=== PATIENT | male | born 1970 | race African-American/Black ===

== ENCOUNTER 2020-06-28 08:41 | Outpatient (REF) | payer OTHER, SELFPAY ==
[2020-06-28 11:47] LABS: Anion Gap 13 (12-20); Blood Urea Nitrogen 13 mg/dL (9-16); Calcium 8.8 mg/dL (8.4-10.2); Carbon Dioxide 25 mmol/L (22-29); Chloride 105 mmol/L (96-108); Cholesterol 182 mg/dL; Estimated Glomerular Filt Rate > 60; Glucose Fasting 71 mg/dL (60-99); HDL Cholesterol 48 mg/dL; LDL Cholesterol Calculated 124 mg/dl; Potassium 4.5 mmol/l (3.3-5.1); Sodium 138 mmol/L (135-145); Triglycerides 50 mg/dL
[2020-06-28 12:04] LABS: SARS COV2 IgG Negative (Negative)
== END 2020-06-28 08:42 | disposition home or self-care (01) ==
LOC: HO.HMGCLDS 08:41
PROVIDERS: PCP Internal Medicine; Visit Provider Internal Medicine
DX: Z00.01 Encounter for general adult medical examination with abnormal findings (principal); E78.9 Disorder of lipoprotein metabolism, unspecified; Z20.828 Contact with and (suspected) exposure to other viral communicable diseases
CPT/HCPCS: 80048; 80061; 86769

== ENCOUNTER 2020-10-17 07:51 | Outpatient (REF) | payer OTHER, SELFPAY ==
[2020-10-18 08:10] LABS: Syphilis Screen Reactive (Nonreactive)
[2020-10-28 14:22] LABS: RPR Quantitative Non-Reactive (Nonreactive)
[2020-10-28 14:23] LABS: T.Pallidum Particle Agg Test Reactive (Nonreactive)
== END 2020-10-17 07:52 | disposition home or self-care (01) ==
LOC: HO.HMGCLDS 07:51
PROVIDERS: PCP Internal Medicine; Visit Provider Internal Medicine
DX: Z11.3 Encounter for screening for infections with a predominantly sexual mode of transmission (principal)
CPT/HCPCS: 36415; 86592; 86780

== ENCOUNTER → 2020-10-30 10:05 | Outpatient (BNVA) | payer OTHER, SELFPAY | PROVIDERS: PCP Internal Medicine; Visit Provider Internal Medicine ==

== ENCOUNTER 2021-10-30 14:53 | Outpatient (REF) | payer OTHER, SELFPAY ==
[2021-10-30 16:47] LABS: Alanine Aminotransferase 62 U/L (0-40); Albumin Level 4.3 g/dL (3.5-5.0); Alkaline Phosphatase 53 U/L (39-117); Anion Gap 14 (12-20); Aspartate Amino Transferase 49 U/L (5-37); Bilirubin Total 0.9 mg/dL (0.0-1.0); Blood Urea Nitrogen 9 mg/dL (9-16); Carbon Dioxide 26 mmol/L (22-29); Chloride 107 mmol/L (96-108); Cholesterol 229 mg/dL; Estimated Glomerular Filt Rate > 60; Glucose Fasting 75 mg/dL (60-99); HDL Cholesterol 48 mg/dL; LDL Cholesterol Calculated 169 mg/dl; Potassium 5.2 mmol/L (3.3-5.1); Sodium 142 mmol/L (135-145); Total Protein 7.5 g/dL (6.5-8.0); Triglycerides 64 mg/dL
== END 2021-10-30 14:54 | disposition home or self-care (01) ==
LOC: HO.HMGCLDS 14:53
PROVIDERS: PCP Internal Medicine; Visit Provider Internal Medicine
DX: E78.9 Disorder of lipoprotein metabolism, unspecified (principal); M16.12 Unilateral primary osteoarthritis, left hip
CPT/HCPCS: 36415; 80053; 80061

== ENCOUNTER 2021-11-10 08:31 | Outpatient (REF) | payer OTHER, SELFPAY ==
--- NOTE | ~2021-11-10 | XR_ITS ---
EXAMINATION: XR PELVIS CLINICAL INFORMATION: Hip pain COMPARISON: None TECHNIQUE: AP view of the pelvis. FINDINGS: There is bilateral hip arthritis with joint space narrowing and osteophyte formation. There may be a small soft tissue calcification or ossification adjacent to the right greater trochanter. Bones of the pelvis are normal. Sacroiliac joints and symphysis are normal. XR/XR pelvis 1-2V IMPRESSION: Bilateral hip arthritis.
== END 2021-11-10 08:32 | disposition home or self-care (01) ==
LOC: HO.HOSX 08:31
PROVIDERS: Visit Provider Orthopaedic Surgery
DX: M16.12 Unilateral primary osteoarthritis, left hip (principal)
CPT/HCPCS: 72170

== ENCOUNTER 2022-02-05 07:00 | Outpatient (RCR) | payer OTHER, SELFPAY ==
[2021-12-05 11:05] VITALS: BP 115/71; PULSE 74; O2SAT 96
--- NOTE | 2021-12-05 15:32 | MHC.PT.EP ---
[facility] [place] Office [place] Office [place] Office [address] Boby Jose [address] [phone] F: [phone] F: [phone] F: [phone] F: [phone] Physical Therapy Plan of Care Date of Evaluation: Date of Surgery: Diagnosis: LEFT HIP OA Assessment: 51 YO MALE REF TO PT W LEFT HIP OA W PROGRESSIVE SXS SINCE 06/2021. 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 OBJECTIVE FINDINGS INCLUDE LIMITED TRUNK AND HIP AROM, (+) TISSUE TENSION IN POSTERIOR CHAIN (Lt > Rt LUMBAR PS AND HIP FLEXOR MM) , WEAKNESS IN MARYLOU HIP ROTATORS, AND PAIN IN Lt POSTEROLAT HIP. FUNCTIONALLY, Pt HAS PAIN AND DIFFIC W DONNING SHOES AND SOCKS, PROLONGED SITTING, SL LEFT, AND STATIC POSITIONING. HE DEMON A DECENT FUNCTIONAL SQUAT. Pt WOULD BENEFIT FROM PT TO ADDRESS THE ABOVE FINDINGS, PAIN MGMT, DEV SELF- SX MGMT STRATEGIES, AND ASSIST Pt W RESUMING REGULAR ADLs/ WORK TASKS. Frequency and Duration: The patient will be seen 2 x WK x 5 WKS Short Term Goals: *Pt'S LEFT HIP GIRDLE PAIN IS DECR TO 2-3/10 W REG ADLs IN 3 2 WKS *Pt DEMON IMPROVED AROM AND INITIATE STRENGTHENING IN HIP IR/ER IN 2 WKS Pt DEMON WFL AROM HIP EXT , ROTAT, AND ANKLE DF/PF IN 3 WKS Pt DEMO IMPROVED GAIT MECH ON LEVEL / UNEVEN GROUND IN 2 WKS Detention Goals: Pt INDEP W HEP PROGRESSION AND SELF-SX MGMT STRATEGIES IN 5 WKS Pt RESUME REG ADLs / SITTING DEMANDS , EVIDENT W IMPROVED LEFI SCORE BY 8-10 POINTS (AT EVAL 53/80 ) IN 5 WKS Pt INCR LE STRENGTH BY 1 GRADE IN 5 WKS Treatment Plan: Modalities to reduce pain, spasms and effusion. Manual therapy to restore motion and function. Therapeutic exercise to improve strength and flexibility. Neuromuscular re-education for posture and balance. Therapeutic activities to return to functional activities of daily living. Electronically signed by: Tegan Perez PT Please sign and return to therapist. Thank you for your referral.
--- NOTE | 2022-02-05 08:23 | MHC.PT.DC ---
[facility] [place] Office [place] Office [place] Office [address] Boby Jose [address] [phone] F: [phone] F: [phone] F: [phone] F: [phone] Physical Therapy Discharge Report Diagnosis: LEFT HIP OA Date of Surgery: Date of Evaluation: 12/05/21 Date of Discharge: 02/05/22 Treatments to Date: 13 Cancellations to Date: No Shows to Date: Discharge Status: Achieved Goals Improved Function Independent with HEP Discharge Summary: Pt HAS PROGRESSED NICELY IN PT- HIS LEFT HIP PAIN HAS RESOLVED, HE IS PLEASED WITH HIS CURRENT STATUS- INDEP W PROGRESSIVE HEP, PERF HIS REG WORK DUTIES AND ADLs W/O SXS. HIS HIP AROM AND OVERALL FLEXIBILITY IN TRUNK AND LEs HAS IMPROVED, EVIDENT IN MORE EFFICIENT GAIT AND FUNCTIONAL MOB, EVIDENT SIGNIFICANTLY IMPROVED LEFI SCORE. Pt IS D/C'D THIS DATE W HEP. Electronically signed by: Tegan More,PT Please sign and return to therapist. Thank you for your referral.
== END 2022-03-20 08:31 | disposition home or self-care (01) ==
LOC: HO.PT 07:00
PROVIDERS: PCP Psychiatry & Neurology Neurology; Visit Provider Orthopaedic Surgery
DX: M16.12 Unilateral primary osteoarthritis, left hip (principal)
CPT/HCPCS: 97110; 97112; 97140; 97162

== ENCOUNTER 2022-03-26 09:30 | Outpatient (REF) | payer OTHER, SELFPAY ==
[2022-03-26 11:33] LABS: MANUAL DIFF FLAG NO
[2022-03-26 11:46] LABS: Basophils Percent Auto 0.5 % (0-2); Eosinophils Absolute Auto 0.1 X10*3/uL (0.0-0.4); Eosinophils Percent Auto 1.7 % (0-4); Hematocrit 43.3 % (42.0-52.0); Hemoglobin 14.4 g/dl (14.0-18.0); Imm Gran Abs Auto 0.01 X10*3/uL (0.00-0.03); Imm Gran Pct Auto 0.2 % (0.0-0.4); Lymphocytes Absolute Auto 1.6 X10*3/uL (1.2-4.9); Lymphocytes Percent Auto 37.3 % (20-40); Mean Corpuscular HGB Conc 33.3 g/dl (31.0-36.0); Mean Corpuscular Hemoglobin 27.7 pg (27.0-33.0); Mean Corpuscular Volume 83.3 fL (80.0-98.0); Mean Platelet Volume 11.8 fL (9.4-12.4); Monocytes Absolute Auto 0.5 X10*3/uL (0.1-1.2); Monocytes Percent Auto 11.3 % (2-11); Neutrophils Absolute Auto 2.1 x10*3/uL (2.0-8.3); Platelet Count 188 X10*3/uL (160-400); Red Cell Distribution Width 13.7 % (11.0-16.0); White Blood Count 4.2 X10*3/uL (4.8-10.8)
[2022-03-26 12:22] LABS: Alanine Aminotransferase 22 U/L (0-40); Albumin Level 4.4 g/dL (3.5-5.0); Alkaline Phosphatase 51 U/L (39-117); Anion Gap 16 (12-20); Aspartate Amino Transferase 21 U/L (5-37); Bilirubin Total 1.3 mg/dL (0.0-1.0); Blood Urea Nitrogen 15 mg/dL (9-16); Calcium 9.4 mg/dL (8.4-10.2); Carbon Dioxide 23 mmol/L (22-29); Chloride 105 mmol/L (96-108); Cholesterol 233 mg/dL; Estimated Glomerular Filt Rate 60; Glucose Fasting 95 mg/dL (60-99); HDL Cholesterol 55 mg/dL; LDL Cholesterol Calculated 167 mg/dl; Potassium 4.3 mmol/L (3.3-5.1); Sodium 140 mmol/L (135-145); Total Protein 7.5 g/dL (6.5-8.0); Triglycerides 56 mg/dL
[2022-03-26 12:27] LABS: TSH reflex Free T4 1.37 uIU/mL (0.32-4.0)
== END 2022-03-26 09:31 | disposition home or self-care (01) ==
LOC: HO.HMGCLDS 09:30
PROVIDERS: PCP Internal Medicine; Visit Provider Internal Medicine
DX: Z00.01 Encounter for general adult medical examination with abnormal findings (principal); M16.12 Unilateral primary osteoarthritis, left hip; R79.89 Other specified abnormal findings of blood chemistry; E78.9 Disorder of lipoprotein metabolism, unspecified
CPT/HCPCS: 36415; 80053; 80061; 84443; 85025

== ENCOUNTER 2022-07-17 07:48 | Outpatient (REF) | payer OTHER, SELFPAY ==
[2022-07-17 12:23] LABS: Alanine Aminotransferase 38 U/L (0-40); Albumin Level 4.4 g/dL (3.5-5.0); Alkaline Phosphatase 48 U/L (39-117); Aspartate Amino Transferase 24 U/L (5-37); Bilirubin Direct 0.4 mg/dL (0.0-0.5); Cholesterol 262 mg/dL; HDL Cholesterol 57 mg/dL; LDL Cholesterol Calculated 194 mg/dl; Total Protein 7.4 g/dL (6.5-8.0); Triglycerides 56 mg/dL
[2022-07-17 14:17] LABS: Bilirubin Total 1.4 mg/dL (0.0-1.0)
== END 2022-07-17 07:49 | disposition home or self-care (01) ==
LOC: HO.HMGCLDS 07:48
PROVIDERS: PCP Internal Medicine; Visit Provider Internal Medicine
DX: E78.9 Disorder of lipoprotein metabolism, unspecified (principal); R79.89 Other specified abnormal findings of blood chemistry
CPT/HCPCS: 36415; 80061; 80076

== ENCOUNTER 2022-08-07 07:53 | Day surgery (SDC) | payer OTHER, SELFPAY ==
[2022-08-07 06:26] VITALS: BMI 31.4
[2022-08-07 08:41] VITALS: BP 115/77; PULSE 67; RESP 17; TEMP 36.6; O2SAT 97
--- NOTE | 2022-08-07 09:56 | MHC.SHP ---
Pre-Procedural Eval Section A Date of Service: 08/07/22 The patient is an INPATIENT: No Changes since office visit: No Cold of Flu in the past 2 weeks, No New Medical Problems, No Changes in Medication and No Patient answered all questions The History & Physical has been completed within 30 days and I have reviewed it.: Yes Section B Chief Complaint: Hemorrhage of anus and rectum Allergies: Allergies Allergy/AdvReac Type Severity Reaction Status Date / Time No Known Allergies Allergy Verified 03/24/22 15:16 Plan I have reviewed the history and physical and performed a pertinent physical examination on my patient. No changes have occurred unless specified. Time Spent With Patient Time: Total time managing care of this patient today ____ minutes.
--- NOTE | 2022-08-07 10:40 | PM.OP ---
Brief Operative Note Date of Service: 08/07/22 Pre-op diagnosis: rectal bleeding Post-op diagnosis: same Procedure: colonoscopy Surgeon: Jason John Anesthesia: MAC Was an Pull Out Operator used for this Procedure?: No Estimated blood loss (mL): 0 Pathology: none sent Condition: stable Disposition: PACU
[2022-08-07 10:44] VITALS: BP 107/63; PULSE 75; RESP 14; TEMP 36.2; O2SAT 97
[2022-08-07 10:59] VITALS: BP 112/68; PULSE 77; RESP 16; TEMP 36.2; O2SAT 99
--- NOTE | 2022-08-07 11:41 | OP_ITS ---
SURGEON: Jason John MD INDICATIONS: Rectal bleeding. PREOPERATIVE DIAGNOSIS: POSTOPERATIVE DIAGNOSIS: PROCEDURE PERFORMED: Colonoscopy to the terminal ileum. ESTIMATED BLOOD LOSS: COMPLICATIONS: ANESTHESIA: Monitored anesthesia care. ASSISTANTS: SPECIMENS: DESCRIPTION OF PROCEDURE: Date: 08/07/22. History and physical was performed. The risks and benefits of the procedure were explained to the patient. Informed consent was obtained. The patient was placed in the left lateral decubitus position. A digital rectal exam was performed and was found to be normal. The Olympus pediatric video colonoscope was introduced into the rectum and advanced to the cecum without difficulty. The cecum was identified by transillumination, palpation, and identification of ileocecal valve. Examination was performed. The scope was removed. He tolerated the procedure well and was taken to recovery area in stable condition. FINDINGS: The terminal ileum was examined and appeared normal. The visualized colonic mucosa was within normal limits without evidence of masses, ulcers, or polyps. The quality of the prep was good. Retroflexed examination showed moderate-sized internal hemorrhoids. IMPRESSION: Normal colonoscopy. RECOMMENDATION: 1. Follow up as needed. 2. Repeat colonoscopy is recommended in 10 years for average risk individuals. MD DEISY Drake/MORRIS / [id number] TERRENCE
--- NOTE | 2022-08-07 13:08 | HO.ANESPROP2 ---
[facility] Active Problems Active Problems: All Active Problems (Updated 08/06/22 @ 12:45 by Rebekah Quarles RN) Encounter for general adult medical examination with abnormal findings (Acute) Screen for STD (sexually transmitted disease) (Acute) Syphilis in male (Acute) Osteoarthritis of left hip (Acute) LFT elevation (Acute) Colon cancer screening (Acute) Lipid disorder (Acute) Past Medical History Medical History (Updated 08/06/22 @ 12:45 by Rebekah Quarles RN) Arthritis Lipid disorder Family History Family History Brother No problems noted. Sister No problems noted. Sister No problems noted. Father HTN (hypertension) Diabetes mellitus Mother No problems noted. Daughter No problems noted. Daughter No problems noted. Son No problems noted. Son No problems noted. Son No problems noted. 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 Cognitive needs: No Hearing needs: No Vision needs: Yes Meds Allergies Allergy/AdvReac Type Severity Reaction Status Date / Time No Known Allergies Allergy Verified 03/24/22 15:16 Exam Exam Date and Time: August 07, 2022 1308 Height,Weight and Vital Signs: Height 5 ft 10 in Weight 99.337 kg Last Vital Signs Temp 97.1 F 08/07/22 10:59 Pulse 77 08/07/22 10:59 Resp 16 08/07/22 10:59 BP 112/68 08/07/22 10:59 Pulse Ox 99 08/07/22 10:59 O2 Del Method 08/07/22 10:59 Airway Mallampati Class: II TM Dist: >3cm Neck ROM: Full Heart: rr Lungs: cta Assessment and Plan Assessment Anesthesia Assessment: Anesthesia Plan Discussed Final Anesthetic Review Family History of Problems with Anesthesia: No History of Problems with Anesthesia: No NPO: Yes ASA Class: II Final Preanesthetic Review: No Changes in Pt Med Stat, Meds/Allgs Chart Reviewed, Consent Obtained/Reviewed and Anes Risks/Benef Reviewed Patient Risk: Low Procedure Risk: Low Anesthetic Plan Anesthetic Plan: MAC: Disposition: Standard PACU
== END 2022-08-07 11:30 | disposition home or self-care (01) ==
PROVIDERS: PCP Internal Medicine; Visit Provider Internal Medicine Gastroenterology
PROC: 0DJD8ZZ Inspection of Lower Intestinal Tract, Via Natural or Artificial Opening Endoscopic (ICD-10-PCS; CPT 45378; principal; 2022-08-07 09:40)
DX: K62.5 Hemorrhage of anus and rectum (principal); K64.8 Other hemorrhoids; E78.5 Hyperlipidemia, unspecified; Z79.899 Other long term (current) drug therapy
CPT/HCPCS: 45378

== ENCOUNTER 2023-05-03 09:19 | Outpatient (REF) | payer OTHER, SELFPAY ==
[2023-05-03 12:08] LABS: Alanine Aminotransferase 25 U/L (0-40); Albumin Level 4.2 g/dL (3.5-5.0); Alkaline Phosphatase 44 U/L (39-117); Anion Gap 9 (12-20); Aspartate Amino Transferase 21 U/L (5-37); Bilirubin Total 0.8 mg/dL (0.0-1.0); Blood Urea Nitrogen 10 mg/dL (9-16); Calcium 9.8 mg/dL (8.4-10.2); Carbon Dioxide 28 mmol/L (22-29); Chloride 107 mmol/L (96-108); Cholesterol 225 mg/dL (<200); Estimated Glomerular Filt Rate > 60; Glucose Fasting 93 mg/dL (60-99); HDL Cholesterol 55 mg/dL (>40); LDL Cholesterol Calculated 154 mg/dL (<100); Potassium 4.2 mmol/L (3.3-5.1); Sodium 140 mmol/L (135-145); Total Protein 7.2 g/dL (6.5-8.0); Triglycerides 83 mg/dL (<150)
== END 2023-05-03 09:20 | disposition home or self-care (01) ==
LOC: HO.HMGCLDS 09:19
PROVIDERS: PCP Internal Medicine; Visit Provider Internal Medicine
DX: R79.89 Other specified abnormal findings of blood chemistry (principal); E78.9 Disorder of lipoprotein metabolism, unspecified
CPT/HCPCS: 36415; 80053; 80061

== ENCOUNTER 2023-07-13 08:50 | Outpatient (AMB) | payer OTHER, SELFPAY ==
[2023-07-13 08:52] VITALS: BP 118/82; PULSE 96; O2SAT 98; BMI 33.1
--- NOTE | 2023-07-13 08:52 | MHC.PC.OV ---
Vital Signs 07/13/23 08:52 Height 5 ft 10 in Weight 230 lb 6 oz BMI 33.1 BP 118/82 Blood Pressure Location Rt brachial Position Sitting Pulse 96 Pulse Source Pulse Oximeter Pulse Oximetry (%) 98 Oxygen Delivery Method Room Air Intake Visit Reasons: Physical exam Allergies No Known Allergies Allergy (Verified 07/13/23 08:52) Medication List - Last Reconciled 07/13/23 by Mariely Singh MD No Known Home Meds Tobacco use date assessed: 07/13/23 Dental Screening Dental Screen Date: 07/13/23 Did you have a dental visit in the last 12 months?: Yes Did you have a dental problem in the last 6 months where you did not have access to dental care?: No Was dental information given to patient?: Patient has dentist HPI Physical exam HPI Details Patient is a 53-year-old gentleman came in today for his regular physical exam Patient had colonoscopy already this year by Dr. John, next 1 will be in 5 years Lab order placed to be done fasting, patient does have elevated LDL BMI is 33.1, patient is muscular however we discussed losing some weight and bringing it down to at least 190, he currently weighs 230 lb He would like to be checked for PSA, patient have arthritis off and on different joints I have added Lyme He does complain of frequency of urination we will check urine as well Follow-up 1 year physical exam [facility] Medical History Arthritis Lipid disorder Surgical History History of colonoscopy Family History Brother No problems noted. Sister No problems noted. Sister No problems noted. Father HTN (hypertension) Diabetes mellitus Mother No problems noted. Daughter No problems noted. Daughter No problems noted. Son No problems noted. Son No problems noted. Son No problems noted. 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 1. Little interest or pleasure in doing things: not at all 2. Feeling down, depressed, or hopeless: not at all 3. Trouble falling or staying asleep, or sleeping too much: several days 4. Feeling tired or having little energy: not at all 5. Poor appetite or overeating: several days 6. Feeling bad about yourself - or that you are a failure or have let yourself or your family down: not at all 7. Trouble concentrating on things, such as reading the newspaper or watching television: not at all 8. Moving or speaking so slowly that other people could have noticed. Or the opposite - being so fidgety or restless that you have been moving around a lot more than usual: not at all 9. Thoughts that you would be better off or of hurting yourself in some way: not at all Total score: 2 Depression Screening Interpretation: Negative Depression Screening Done: Yes 73106 - PHQ-9 Billing: Yes Source: Developed by Drs. Van Lieberman, Maria Antonia Wagner, Bry Patel and colleagues, with an educational kane from [employer]. Thrive Questionnaire Date Thrive assessed: 10/29/21 AUDIT C Alcohol Use Questionnaire (AUDIT-C) 1. How often do you have a drink containing alcohol?: Monthly or less 2. How many drinks containing alcohol do you have on a typical day when you are drinking?: 1 or 2 3. How often do you have six or more drinks on one occasion?: Never Total Score: 1 Score Reviewed/Action Taken: No SEGUNDO-7 AMB Questionnaire SEGUNDO-7 Date SEGUNDO - 7 assessed: 07/13/23 Feeling nervous, anxious, or on edge: 0 = Not at all Not being able to stop or control worryin = Not at all Worrying too much about different things: 1 = Several days Trouble relaxin = Not at all Being so restless that it is hard to sit still: 0 = Not at all Becoming easily annoyed or irritable: 1 = Several days Feeling afraid as if something awful might happen: 0 = Not at all Total SEGUNDO-7 score (0-4 normal; 5-9 mild; 10-14 moderate; 15-21 severe): 2 Source: Developed by Drs. Van Lieberman, Maria Antonia Wagner, Bry Patel and colleagues, with an educational kane from [employer]. SEGUNDO-7 Assessment Billing SEGUNDO-7 Assessment Tool: SEGUNDO-7 Assessment 63681 Review of Systems Const Denies chills, Denies fever(s) and Denies headache(s) Eyes Denies blurry vision ENT Denies headache(s), Denies nasal discharge, Denies nasal obstruction, Denies odynophagia and Denies sinus pain Card Denies chest pain at rest and Denies chest pain with activity Resp Denies cough and Denies hemoptysis GI Denies diarrhea, Denies odynophagia, Denies vomiting and Denies hematemesis Reports as per HPI Musc Denies abnormal gait Skin/Breast Reports as per HPI Neuro Denies Neuro-related abnormal movements, Denies Abnormal speech present, Denies abnormal gait, Denies headache(s) and Denies Sensory deficit (Neuro) Psych Denies mood swings and Denies paranoia Endo Reports as per HPI Stephen/Lymph Reports as per HPI Aller/Immun Reports as per HPI Physical exam (Primary Care) Vital Signs: Last Vital Signs Pulse 96 07/13/23 08:52 BP 118/82 07/13/23 08:52 Pulse Ox 98 07/13/23 08:52 Oxygen Delivery Method Room Air 07/13/23 08:52 BMI result Body Mass Index 33.1 Tobacco/Smoking Status: Tobacco use Status Tobacco use date assessed 07/13/23 07/13/23 08:54 Patient Tobacco Use Status Never used Tobacco 07/13/23 08:54 e-Cigarette/Vaping Use Never Used 07/13/23 08:54 PHQ-9: PHQ-9 Score PHQ-9: Total score 2 07/13/23 09:31 Depression Screening Interpretation: Negative Thrive Assessment: Date of Thrive Assessment Date Thrive assessed 10/29/21 07/13/23 08:54 Const General: cooperative, comfortable and no acute distress Orientation/consciousness: patient oriented x3 HENMT Head: Yes normocephalic and Yes atraumatic Eyes General: appearance normal, both eyes and all related structures Pupils: Equal, round and reactive pupils present EOM: EOMs intact bilaterally Neck Neck: Yes supple and No lymphadenopathy Thyroid: Thyroid normal Lymphatic: no lymphadenopathy noted Resp Effort & Inspection: normal respiratory effort and able to speak in complete sentences Auscultation: clear to auscultation bilaterally Cardio Heart sounds: S1 normal heart sound present and S2 normal heart sound present GI Palpation (GI): Soft to palpation and nontender Auscultation: normal bowel sounds General: Yes no CVA tenderness Back/Spine/Pelvis Back: no CVA tenderness Skin General skin exam: elasticity normal and turgor normal Neuro General: patient oriented x3 and gait normal Cranial nerves: Yes Equal, round and reactive pupils present Speech: No Abnormal speech present Sensory Exam: No Sensory deficit (Neuro) Coordination: tandem gait normal and Romberg test negative Extrem General: Yes normal exam except as noted and No edema Immunizations Boostrix Tdap 2.5 Lf unit-8 mcg-5 Lf/0.5 mL intramuscular syringe Performing Provider: Mariely Singh MD Performing Location: [facility] Administered by: Donna Galindo CMA on 07/13/23 09:31 Dose Route Admin Location Dispensed Lot Number Expiration Date NDC Sewer Builder 0.5 mL IM Left Deltoid 0.5 mL [id number] 08/26/25 [id number] [employer] VIS Given Date VIS Provided VIS Publication Date 07/13/23 Single Vaccine 21 Eligibility Eligibility Date Funding Source Not [facility] Eligible 07/13/23 Private Assessment and Plan Assessment & Plan (1) Encounter for general adult medical examination with abnormal findings: Comment: stable Code(s): Z00.01 - Encounter for general adult medical examination with abnormal findings (2) Lipid disorder: Code(s): E78.9 - Disorder of lipoprotein metabolism, unspecified (3) Obesity due to excess calories: Code(s): E66.09 - Other obesity due to excess calories Qualifiers: Body mass index: BMI 33.0-33.9 Obesity classification: adult class 1 (BMI 30 - 34.9) Serious obesity comorbidity presence: without serious comorbidity Qualified Code(s): E66.09 - Other obesity due to excess calories; Z68.33 - Body mass index [BMI] 33.0-33.9, adult (4) Frequency of urination: Code(s): R35.0 - Frequency of micturition (5) Arthrosis: Code(s): M19.90 - Unspecified osteoarthritis, unspecified site Plan Patient is a 53-year-old gentleman came in today for his regular physical exam Patient had colonoscopy already this year by Dr. John, next 1 will be in 5 years Lab order placed to be done fasting, patient does have elevated LDL BMI is 33.1, patient is muscular however we discussed losing some weight and bringing it down to at least 190, he currently weighs 230 lb He would like to be checked for PSA, patient have arthritis off and on different joints I have added Lyme He does complain of frequency of urination we will check urine as well Follow-up 1 year physical exam Orders: Orders Complete Blood Count Auto Diff Today E66.09 - Other obesity due to excess calories, E78.9 - Disorder of lipoprotein metabolism, unspecified, Z00.01 - Encounter for general adult medical examination with abnormal findings Comprehensive [place]. Panel Fast Today E66.09 - Other obesity due to excess calories, E78.9 - Disorder of lipoprotein metabolism, unspecified, Z00.01 - Encounter for general adult medical examination with abnormal findings Lipid Panel Today E66.09 - Other obesity due to excess calories, E78.9 - Disorder of lipoprotein metabolism, unspecified, Z00.01 - Encounter for general adult medical examination with abnormal findings UA CC w/rflx Micro + Cult Today R35.0 - Frequency of micturition Lyme IgG/IgM w/reflex to WB Today M19.90 - Unspecified osteoarthritis, unspecified site Prostate Specific Antigen Today R35.0 - Frequency of micturition TDaP Immunization Today Z23 - Encounter for immunization Coding Level of Care Code Est Pt Prev Care 40-64y(41909) Diagnoses Encounter for general adult medical examination with abnormal findings Z00.01 Lipid disorder E78.9 Class 1 obesity due to excess calories without serious comorbidity with body mass index (BMI) of 33.0 to 33.9 in adult E66.09; Z68.33 Body mass index: BMI 33.0-33.9 Obesity classification: adult class 1 (BMI 30 - 34.9) Serious obesity comorbidity presence: without serious comorbidity Frequency of urination R35.0 Arthrosis M19.90 Additional Codes SEGUNDO-7 Assessment Billing - SEGUNDO-7 Assessment Tool: SEGUNDO-7 Assessment [id number] ([id number])
== END 2023-07-13 12:00 | disposition home or self-care (01) ==
PROVIDERS: PCP Internal Medicine; Visit Provider Internal Medicine
DX: Z00.00 Encounter for general adult medical examination without abnormal findings (principal); E78.9 Disorder of lipoprotein metabolism, unspecified; E66.09 Other obesity due to excess calories; Z23 Encounter for immunization; Z68.33 Body mass index [BMI] 33.0-33.9, adult; R35.0 Frequency of micturition; M19.90 Unspecified osteoarthritis, unspecified site
CPT/HCPCS: 90471; 90715; 99396

== ENCOUNTER 2023-07-19 08:15 | Outpatient (REF) | payer OTHER, SELFPAY ==
[2023-07-19 11:15] LABS: MANUAL DIFF FLAG NO
[2023-07-19 11:20] LABS: Appearance Urine Clear; Color Urine Yellow; Glucose Urine UA Negative (Negative); Leukocyte Esterase Urine Negative (Negative); Nitrite Urine Negative (Negative); Urine Blood Negative (Negative); Urine Ketones Negative (Negative); Urine Protein Negative (Neg-Trace)
[2023-07-19 11:51] LABS: Basophils Percent Auto 0.8 % (0-2); Eosinophils Absolute Auto 0.1 X10*3/uL (0.0-0.4); Eosinophils Percent Auto 2.8 % (0-4); Hematocrit 44.9 % (42.0-52.0); Hemoglobin 14.9 g/dl (14.0-18.0); Imm Gran Abs Auto 0.03 X10*3/uL (0.00-0.03); Imm Gran Pct Auto 0.6 % (0.0-0.4); Lymphocytes Absolute Auto 1.7 X10*3/uL (1.2-4.9); Lymphocytes Percent Auto 33.5 % (20-40); Mean Corpuscular HGB Conc 33.2 g/dl (31.0-36.0); Mean Corpuscular Hemoglobin 27.7 pg (27.0-33.0); Mean Corpuscular Volume 83.5 fL (80.0-98.0); Monocytes Absolute Auto 0.5 X10*3/uL (0.1-1.2); Monocytes Percent Auto 10.5 % (2-11); Neutrophils Absolute Auto 2.6 x10*3/uL (2.0-8.3); Neutrophils Percent Auto 51.8 % (45-73); Platelet Count 206 X10*3/uL (160-400); Red Blood Count 5.38 X10*6/uL (4.60-5.80)
[2023-07-19 11:56] LABS: Alanine Aminotransferase 30 U/L (0-40); Albumin Level 4.2 g/dL (3.5-5.0); Alkaline Phosphatase 43 U/L (39-117); Anion Gap 11 (12-20); Aspartate Amino Transferase 23 U/L (5-37); Bilirubin Total 0.7 mg/dL (0.0-1.0); Blood Urea Nitrogen 14 mg/dL (9-16); Calcium 8.9 mg/dL (8.4-10.2); Carbon Dioxide 25 mmol/L (22-29); Chloride 109 mmol/L (96-108); Cholesterol 233 mg/dL (<200); Estimated Glomerular Filt Rate > 60; Glucose Fasting 97 mg/dL (60-99); HDL Cholesterol 55 mg/dL (>40); LDL Cholesterol Calculated 165 mg/dL (<100); Potassium 4.3 mmol/L (3.3-5.1); Sodium 141 mmol/L (135-145); Total Protein 7.4 g/dL (6.5-8.0); Triglycerides 68 mg/dL (<150)
[2023-07-19 12:05] LABS: Prostate Specific Antigen 0.38 ng/mL (<0.05-4.0)
[2023-07-20 17:09] LABS: Lyme Abs Screen <0.90 index
== END 2023-07-19 08:16 | disposition home or self-care (01) ==
LOC: HO.HMGCLDS 08:15
PROVIDERS: PCP Internal Medicine; Visit Provider Internal Medicine
DX: Z00.01 Encounter for general adult medical examination with abnormal findings (principal); Z12.5 Encounter for screening for malignant neoplasm of prostate; E66.09 Other obesity due to excess calories; R35.0 Frequency of micturition; M19.90 Unspecified osteoarthritis, unspecified site; E78.9 Disorder of lipoprotein metabolism, unspecified
CPT/HCPCS: 36415; 80053; 80061; 81003; 84153; 85025; 86617; 86618

== ENCOUNTER 2024-07-18 14:27 | Outpatient (AMB) | payer OTHER, SELFPAY ==
[2024-07-18 14:28] VITALS: BP 120/80; PULSE 77; O2SAT 99; BMI 32.1
--- NOTE | 2024-07-18 14:28 | MHC.PC.OV ---
Vital Signs 07/18/24 14:28 Height 5 ft 10 in Weight 224 lb BMI 32.1 BP 120/80 Blood Pressure Location Rt brachial Position Sitting Pulse 77 Pulse Source Pulse Oximeter Pulse Oximetry (%) 99 Oxygen Delivery Method Room Air Intake Visit Reasons: Annual Physical ~ Allergies No Known Allergies Allergy (Verified 07/18/24 14:28) Medication List - Last Reconciled 07/18/24 by Mariely Singh MD No Known Home Meds Tobacco use date assessed: 07/18/24 Dental Screening Dental Screen Date: 07/18/24 Did you have a dental visit in the last 12 months?: Yes Did you have a dental problem in the last 6 months where you did not have access to dental care?: No Was dental information given to patient?: Patient has dentist HPI Annual Physical ~ HPI Details Patient is a 54-year-old gentleman came in today for physical examination Colonoscopy was through Dr. 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 Sister No problems noted. Sister No problems noted. Father HTN (hypertension) Diabetes mellitus Mother No problems noted. Daughter No problems noted. Daughter No problems noted. Son No problems noted. Son No problems noted. Son No problems noted. 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 1. Little interest or pleasure in doing things: not at all 2. Feeling down, depressed, or hopeless: not at all 3. Trouble falling or staying asleep, or sleeping too much: not at all 4. Feeling tired or having little energy: not at all 5. Poor appetite or overeating: not at all 6. Feeling bad about yourself - or that you are a failure or have let yourself or your family down: not at all 7. Trouble concentrating on things, such as reading the newspaper or watching television: not at all 8. Moving or speaking so slowly that other people could have noticed. Or the opposite - being so fidgety or restless that you have been moving around a lot more than usual: not at all 9. Thoughts that you would be better off or of hurting yourself in some way: not at all Total score: 0 Depression Screening Interpretation: Negative Depression Screening Done: Yes 44480 - PHQ-9 Billing: Yes Source: Developed by Drs. Van Lieberman, Maria Antonia Wagner, Bry Patel and colleagues, with an educational kane from [employer]. Thrive Questionnaire Date Thrive assessed: 07/18/24 I am a: Patient What is your living situation today?: I have a steady place to live Within the past 12 months, did the food you bought not last and you didn't have the money to get more?: Never true Within the past 12 months, did you worry whether your food would run out before you got money to buy more?: Never true Do you have trouble paying for medicines?: No Do you have trouble getting transportation to medical appointments?: No Do you have trouble paying your heating and electricity bill?: No Do you have trouble taking care of your child, family member or friend?: No Do you have trouble with day-to-day activities such as bathing, preparing meals, shopping, managing finances, etc.?: No Are you currently unemployed and looking for a job?: No Are you interested in more education?: No Please select the resources that you would like help with: None Currently or been in a relationship where the following occur: No concerns reported THRIVE Score: 0 AUDIT C Alcohol Use Questionnaire (AUDIT-C) 1. How often do you have a drink containing alcohol?: Monthly or less 2. How many drinks containing alcohol do you have on a typical day when you are drinking?: 1 or 2 3. How often do you have six or more drinks on one occasion?: Monthly Total Score: 3 Score Reviewed/Action Taken: Yes SEGUNDO-7 AMB Questionnaire SEGUNDO-7 Date SEGUNDO - 7 assessed: 07/18/24 Feeling nervous, anxious, or on edge: 0 = Not at all Not being able to stop or control worryin = Not at all Worrying too much about different things: 0 = Not at all Trouble relaxin = Not at all Being so restless that it is hard to sit still: 0 = Not at all Becoming easily annoyed or irritable: 0 = Not at all Feeling afraid as if something awful might happen: 0 = Not at all Total SEGUNDO-7 score (0-4 normal; 5-9 mild; 10-14 moderate; 15-21 severe): 0 Source: Developed by Drs. Van Lieberman, Maria Antonia Wagner, Bry Patel and colleagues, with an educational kane from [employer]. SEGUNDO-7 Assessment Billing SEGUNDO-7 Assessment Tool: SEGUNDO-7 Assessment 70759 Review of Systems Const Denies chills, Denies fever(s) and Denies headache(s) Eyes Denies blurry vision ENT Denies headache(s), Denies nasal discharge, Denies nasal obstruction, Denies odynophagia and Denies sinus pain Card Denies chest pain at rest and Denies chest pain with activity Resp Denies cough and Denies hemoptysis GI Denies diarrhea, Denies odynophagia, Denies vomiting and Denies hematemesis Reports as per HPI Musc Denies abnormal gait Skin/Breast Reports as per HPI Neuro Denies Neuro-related abnormal movements, Denies Abnormal speech present, Denies abnormal gait, Denies headache(s) and Denies Sensory deficit (Neuro) Psych Denies mood swings and Denies paranoia Endo Reports as per HPI Stephen/Lymph Reports as per HPI Aller/Immun Reports as per HPI Physical exam (Primary Care) Tobacco/Smoking Status: Tobacco use Status Tobacco use date assessed 07/18/24 07/18/24 14:31 Patient Tobacco Use Status Never used Tobacco 07/18/24 14:31 e-Cigarette/Vaping Use Never Used 07/18/24 14:31 PHQ-9: PHQ-9 Score PHQ-9: Total score 0 07/18/24 14:31 Depression Screening Interpretation: Negative Thrive Assessment: Date of Thrive Assessment Date Thrive assessed 07/18/24 07/18/24 14:31 Currently or been in a relationship where the following occur: No concerns reported Const General: cooperative, comfortable and no acute distress Orientation/consciousness: patient oriented x3 HENMT Head: Yes normocephalic and Yes atraumatic Eyes General: appearance normal, both eyes and all related structures Pupils: Equal, round and reactive pupils present EOM: EOMs intact bilaterally Neck Neck: Yes supple and No lymphadenopathy Thyroid: Thyroid normal Lymphatic: no lymphadenopathy noted Resp Effort & Inspection: normal respiratory effort and able to speak in complete sentences Auscultation: clear to auscultation bilaterally Cardio Heart sounds: S1 normal heart sound present and S2 normal heart sound present GI Palpation (GI): Soft to palpation and nontender Auscultation: normal bowel sounds General: Yes no CVA tenderness Back/Spine/Pelvis Back: no CVA tenderness Skin General skin exam: elasticity normal and turgor normal Neuro General: patient oriented x3 and gait normal Cranial nerves: Yes Equal, round and reactive pupils present Speech: No Abnormal speech present Sensory Exam: No Sensory deficit (Neuro) Coordination: tandem gait normal and Romberg test negative Extrem General: Yes normal exam except as noted and No edema Coding Level of Care Code Est Pt Level 3 (11362) Est Pt Prev Care 40-64y(26557) Diagnoses Encounter for general adult medical examination with abnormal findings Z Lipid disorder E78.9 LFT elevation R79.89 Class 1 obesity due to excess calories without serious comorbidity with body mass index (BMI) of 33.0 to 33.9 in adult E66.09; Z68.33 Body mass index: BMI 33.0-33.9 Obesity classification: adult class 1 (BMI 30 - 34.9) Serious obesity comorbidity presence: without serious comorbidity Additional Codes SEGUNDO-7 Assessment Billing - SEGUNDO-7 Assessment Tool: SEGUNDO-7 Assessment 72747 ([id number]) PHQ-9 - 04677 - PHQ-9 Billing: Yes ([id number]) Assessment & Plan Assessment & Plan (1) Encounter for general adult medical examination with abnormal findings: Comment: stable Code(s): Z00.01 - Encounter for general adult medical examination with abnormal findings Category: Medical (2) Lipid disorder: Code(s): E78.9 - Disorder of lipoprotein metabolism, unspecified Category: Medical (3) LFT elevation: Code(s): R79.89 - Other specified abnormal findings of blood chemistry Category: Medical (4) Obesity due to excess calories: Code(s): E66.09 - Other obesity due to excess calories Category: Medical Qualifiers: Body mass index: BMI 33.0-33.9 Obesity classification: adult class 1 (BMI 30 - 34.9) Serious obesity comorbidity presence: without serious comorbidity Qualified Code(s): E66.09 - Other obesity due to excess calories; Z68.33 - Body mass index [BMI] 33.0-33.9, adult Plan: If your BMI is between 25 and 29.9, you are overweight. If your BMI is 30 or greater, you are obese. ___ Being obese is a problem, because it increases the risks of many different health problems. It can also make it hard for you to move, breathe, and do other things that people who are at a healthy weight can do easily. Plus, being obese can be hard emotionally. ___ What are the health risks of being obese? Being obese increases a persons risk of developing many health problems. Here are just a few examples: __ Diabetes High blood pressure, High cholesterol, Heart disease (including heart attacks) Stroke, Sleep apnea (a disorder in which you stop breathing for short periods while asleep) Asthma, Cancer __ Does being obese shorten a persons life? Yes. Studies show that people who are obese younger than people who are a healthy weight. They also show that the risk of goes up the heavier a person is. The degree of increased risk depends on how long the person has been obese, and on what other medical problems he or she has. , Reduce your carbohydrate intake and choose carbs that are complex. Remember as a general rule of thumb, avoid highly processed foods. If it's white and soft, it's probably been stripped of its nutritional value. Change white bread to whole wheat bread, white rice to brown rice, white potatoes to sweet potatoes, white pasta to whole wheat pasta. Monitor portion sizes too: protein should be no bigger than your fist. Limit your red meat intake to only once or twice a wk. Eat more white meat but make sure to avoid creamy sauces etc. Broiling, baking or grilling is best. Increase dark, green leafy vegetables and fruits. Plan Patient is a 54-year-old gentleman came in today for physical examination Colonoscopy was through Dr. 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 Panel Fast Today E66.09 - Other obesity due to excess calories, E78.9 - Disorder of lipoprotein metabolism, unspecified, R79.89 - Other specified abnormal findings of blood chemistry, Z00.01 - Encounter for general adult medical examination with abnormal findings, Z68.33 - Body mass index [BMI] 33.0-33.9, adult Lipid Panel Today E66.09 - Other obesity due to excess calories, E78.9 - Disorder of lipoprotein metabolism, unspecified, R79.89 - Other specified abnormal findings of blood chemistry, Z00.01 - Encounter for general adult medical examination with abnormal findings, Z68.33 - Body mass index [BMI] 33.0-33.9, adult Complete Blood Count Auto Diff Today E66.09 - Other obesity due to excess calories, E78.9 - Disorder of lipoprotein metabolism, unspecified, R79.89 - Other specified abnormal findings of blood chemistry, Z00.01 - Encounter for general adult medical examination with abnormal findings, Z68.33 - Body mass index [BMI] 33.0-33.9, adult
--- OUTSIDE RECORDS SUMMARY | 2024-07-25 14:55 | XMS_ITS | Patient Health Record ---
Author Organization [facility] Address [address] [place] [address] Care Team Providers Care Senior Care Manager Name Role Phone Francisco SANDOVAL, [facility] Primary Care Provider Jason Garcia Jr Unavailable [phone] ALLERGIES No Known Allergies REASON FOR REFERRAL No Information MEDICATIONS Medication SIG (Take, Route, Frequency, Duration) Notes Start Date End Date Status Golytely 236 GM as directed before colonoscopy Orally every 15 minutes for 1 day(s) 07/27/2022 Active Pravastatin Sodium 40 MG TAKE 1 TABLET B Y MOUTH DAILY Oral for 90 Active IMMUNIZATIONS Vaccine Route Administration Date Status Comme nts Influenza Unknown 08/18/2018 Refused Influenza Unknown 07/27/2022 Refused SOCIAL HISTORY Tobacco Use: Social History Observation Description Date Details (start date - stop date) Never Smoker NA - NA Sex Assigned At : Social History Observation Description Sex Assigned At Unknown Tobacco Use/Smoking Question Answer Notes Patient is a nonsmoker Alcohol Screen Question Answer Notes Did you have a drink containing alcohol in the p ast year? No Points 0 Interpretation Negative PROBLEMS Problem Type ICD Code Onset Dates Problem Status W/U Status Risk SNOMED Code Notes Problem Colon cancer screening (Z12.11) Active confirmed 126233280 Problem Encounter for other preprocedural examination (Z01.818) Active confirmed 11741862 Problem Rectal bleeding (K62.5) Active confirmed 66129823 PLAN OF TREATMENT Future Test Test Name Order Date COLONOSCOPY 08/18/2018 COLONOSCOPY 07/27/2022 Insurance Providers Payer Name Payer Address Payer Phone Subscriber Number Group Number Insured Name Patient Relationship to Insured Coverage Start Date Coverage End Date [facility] [address] [place] [phone] [id number] ROMEL AMAYA Self - patient is the insured MEDICAL (GENERAL) HISTORY Medical History History ICD Code Colonoscopy 09/07/18, normal, ten-year fo llowup Hyperlipidemia Arthritis
== END 2024-07-18 14:50 | disposition home or self-care (01) ==
PROVIDERS: PCP Internal Medicine; Visit Provider Internal Medicine
DX: Z00.00 Encounter for general adult medical examination without abnormal findings (principal); E78.9 Disorder of lipoprotein metabolism, unspecified; E66.09 Other obesity due to excess calories; Z68.33 Body mass index [BMI] 33.0-33.9, adult

== ENCOUNTER → 2024-07-18 14:27 | Outpatient (BNVA) | payer OTHER, SELFPAY | PROVIDERS: PCP Internal Medicine; Visit Provider Internal Medicine | DX: Z00.01 Encounter for general adult medical examination with abnormal findings (principal); E78.9 Disorder of lipoprotein metabolism, unspecified; R79.89 Other specified abnormal findings of blood chemistry; E66.09 Other obesity due to excess calories; Z68.33 Body mass index [BMI] 33.0-33.9, adult | CPT/HCPCS: 96127 ==

== ENCOUNTER 2024-07-24 14:50 | Outpatient (REF) | payer OTHER, SELFPAY ==
[2024-07-24 16:48] LABS: MANUAL DIFF FLAG NO
[2024-07-24 17:00] LABS: Basophils Percent Auto 0.6 % (0-2); Eosinophils Absolute Auto 0.1 X10*3/uL (0.0-0.4); Eosinophils Percent Auto 1.8 % (0-4); Hematocrit 42.7 % (42.0-52.0); Hemoglobin 14.2 g/dl (14.0-18.0); Imm Gran Abs Auto 0.01 X10*3/uL (0.00-0.03); Imm Gran Pct Auto 0.2 % (0.0-0.4); Lymphocytes Percent Auto 40.9 % (20-40); Mean Corpuscular HGB Conc 33.3 g/dl (31.0-36.0); Mean Corpuscular Hemoglobin 27.9 pg (27.0-33.0); Mean Corpuscular Volume 83.9 fL (80.0-98.0); Monocytes Absolute Auto 0.5 X10*3/uL (0.1-1.2); Monocytes Percent Auto 9.9 % (2-11); Neutrophils Absolute Auto 2.3 x10*3/uL (2.0-8.3); Neutrophils Percent Auto 46.6 % (45-73); Platelet Count 214 X10*3/uL (160-400); Red Blood Count 5.09 X10*6/uL (4.60-5.80); Red Cell Distribution Width 13.4 % (11.0-16.0); White Blood Count 4.9 X10*3/uL (4.8-10.8)
[2024-07-24 17:26] LABS: Albumin Level 4.3 g/dL (3.5-5.0); Alkaline Phosphatase 46 U/L (39-117); Anion Gap 11 (12-20); Aspartate Amino Transferase 31 U/L (5-37); Bilirubin Total 0.9 mg/dL (0.0-1.0); Blood Urea Nitrogen 14 mg/dL (9-16); Calcium 9.6 mg/dL (8.4-10.2); Carbon Dioxide 25 mmol/L (22-29); Chloride 110 mmol/L (96-108); Cholesterol 220 mg/dL (<200); Estimated Glomerular Filt Rate > 60; Glucose Fasting 78 mg/dL (60-99); HDL Cholesterol 47 mg/dL (>40); LDL Cholesterol Calculated 161 mg/dL (<100); Potassium 3.9 mmol/L (3.3-5.1); Sodium 142 mmol/L (135-145); Total Protein 7.3 g/dL (6.5-8.0); Triglycerides 62 mg/dL (<150)
[2024-07-24 17:53] LABS: Alanine Aminotransferase 38 U/L (0-40)
--- OUTSIDE RECORDS SUMMARY | 2024-07-26 16:15 | XMS_ITS | Patient Health Record ---
Author Organization [facility] Address [address] [place] [address] Care Team Providers Care Ethylbenzene Cracking Supervisor Name Role Phone Francisco SANDOVAL, [facility] Primary Care Provider Jason Garcia Jr Unavailable ALLERGIES No Known Allergies REASON FOR REFERRAL [...] Problem Colon cancer screening (Z12.11) Active confirmed 191329443 Problem Encounter for other preprocedural examination (Z01.818) Active confirmed 16943399 Problem Rectal bleeding (K62.5) Active confirmed [id number] PLAN OF TREATMENT Future Test Test Name Order Date COLONOSCOPY 08/18/2018 COLONOSCOPY 07/27/2022 Insurance Providers Payer Name Payer Address Payer Phone Subscriber Number Group Number Insured Name Patient Relationship to Insured Coverage Start Date Coverage End Date [facility] [address] [place] [phone] [id number] ROMEL AMAYA Self - patient is the insured MEDICAL (GENERAL) HISTORY Medical History History ICD Code Colonoscopy 09/07/18, normal, ten-year fo llowup Hyperlipidemia Arthritis
== END 2024-07-24 14:51 | disposition home or self-care (01) ==
LOC: HO.HMGCLDS 14:50
PROVIDERS: PCP Internal Medicine; Visit Provider Internal Medicine
DX: Z00.01 Encounter for general adult medical examination with abnormal findings (principal); E78.9 Disorder of lipoprotein metabolism, unspecified; R79.89 Other specified abnormal findings of blood chemistry; E66.09 Other obesity due to excess calories; Z68.33 Body mass index [BMI] 33.0-33.9, adult
CPT/HCPCS: 36415; 80053; 80061; 85025

== ENCOUNTER 2024-11-22 13:57 | Outpatient (AMB) | payer OTHER, SELFPAY ==
[2024-11-22 14:00] VITALS: BP 110/82; PULSE 86; O2SAT 99; BMI 32.4
--- NOTE | 2024-11-22 14:00 | A.OFFPC_ITS ---
Vital Signs 11/22/24 14:00 Height 5 ft 10 in Weight 226 lb BMI 32.4 BP 110/82 Blood Pressure Location Lt brachial Position Sitting Pulse 86 Pulse Source Pulse Oximeter Pulse Oximetry (%) 99 Oxygen Delivery Method Room Air Intake Visit Reasons: ED F/U [facility]/ Referral Req Allergies No Known Allergies Allergy (Verified 11/22/24 14:00) Medication List - Last Reconciled 11/22/24 by Mariely Singh MD No Known Home Meds Tobacco use date assessed: 11/22/24 Dental Screening Dental Screen Date: 11/22/24 Did you have a dental visit in the last 12 months?: Yes Did you have a dental problem in the last 6 months where you did not have access to dental care?: No Was dental information given to patient?: Patient has dentist HPI ED F/U [facility]/ Referral Req HPI Details Follow-up from ER visit dated 11/18/2024 [facility] 54-year-old gentleman presented to emerg ency room with a complaint of left shoulder, left elbow and left back pain. Initial injury occurred about a month ago. 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 Patient has been treating himself at home with resting and stretching exercises and was able to use elliptical. While using elliptical his shoulder was fine but hurt more after the use. On the day of arrival to emergency room patient twisted his back awkwardly and started having more pain There was no numbness tingling or weakness in extremities He had imaging done X-ray of his left elbow and shoulder were within normal limit His exam was most consistent with possible rotator cuff injury. Patient seemed to have muscular strain to his lower back no tenderness to percussion It was thought that there is no need for imaging of his back at that time. Physical therapy referral was offered but patient declined He was accompanied by his who requested small amount of oxycodone for his pain [id number] meds were not helping patient was given 12 tablets of 5 mg oxycodone Continued to have left shoulder pain. - Orthopedic consultation desired over p hysical therapy to further investigate shoulder condition. 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 - Also reported is a chronic cough persi sting for four years. 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 - Previously treated symptoms with aller gy medication with varying effectiveness. - Denies tobacco use and presents no conor rtness of breath despite chronic cough presence. - Lymphadenopathy in the neck area obser sai, considered non-threatening and allergy-related. Problem List - Shoulder pain likely due to suspected rotator cuff pathology - Chronic cough possibly secondary to en vironmental exposure - Lymphadenopathy attributed to allergie s or viral infection Patient Instructions - Arrange an appointment with an orthope dic specialist for further evaluation of the shoulder pain. - Consult a women specialist to asse ss chronic cough and potential e nvironmental influence on respiratory health. - Continue using masks at work to minimi ze dust exposure. - Monitor lymph node size and report any increase or changes. Review of Systems - General: No fever no chills - Neurological: No headaches no dizziness - Ear nose throat: No sore throat no hearing difficulty no ear pain - Cardiovascular: No syncope, no chest pain, no palpitations - Gastrointestinal: No nausea vomiting or diarrhea - Endocrine: No polyuria polydipsia no heat intolerance - Genitourinary: No dysuria , no blood in urine Physical Exam General: No acute distress HEENT: Lymph nodes enlarged single left cervical, chronic cough, mucus production Neck: Supple, Respiratory system: Able to talk in full sentences, no audible wheeze, chronic cough, mucus production Cardiovascular: S1-S2 regular in rate and rhythm Gastrointestinal: No pain Extremities: Shoulder pain, left pain over rotator cuff with palpation, range of motion limited to 90 degrees extension, possible rotator cuff issue, neurovascular intact 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 Sister No problems noted. Sister No problems noted. Father HTN (hypertension) Diabetes mellitus Mother No problems noted. Daughter No problems noted. Daughter No problems noted. Son No problems noted. Son No problems noted. Son No problems noted. 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 71711 - PHQ-9 Billing: Patient declined-do not bill Source: Developed by Drs. Van Lieberman, Maria Antonia Wagner, Bry Patel and colleagues, with an educational kane from [employer]. Thrive Questionnaire Date Thrive assessed: 11/22/24 I am a: Patient What is your living situation today?: I have a steady place to live Within the past 12 months, did the food you bought not last and you didn't have the money to get more?: Never true Within the past 12 months, did you worry whether your food would run out before you got money to buy more?: Never true Do you have trouble paying for medicines?: No Do you have trouble getting transportation to medical appointments?: No Do you have trouble paying your heating and electricity bill?: No Do you have trouble taking care of your child, family member or friend?: No Do you have trouble with day-to-day activities such as bathing, preparing meals, shopping, managing finances, etc.?: No Are you currently unemployed and looking for a job?: No Are you interested in more education?: No Please select the resources that you would like help with: None Currently or been in a relationship where the following occur: No concerns reported THRIVE Score: 0 AUDIT C Alcohol Use Questionnaire (AUDIT-C) 1. How often do you have a drink containing alcohol?: Monthly or less 2. How many drinks containing alcohol do you have on a typical day when you are drinking?: 1 or 2 3. How often do you have six or more drinks on one occasion?: Monthly Total Score: 3 Score Reviewed/Action Taken: Yes SEGUNDO-7 AMB Questionnaire SEGUNDO-7 Date SEGUNDO - 7 assessed: 11/22/24 Feeling nervous, anxious, or on edge: 0 = Not at all Not being able to stop or control worryin = Not at all Worrying too much about different things: 0 = Not at all Trouble relaxin = Not at all Being so restless that it is hard to sit still: 0 = Not at all Becoming easily annoyed or irritable: 0 = Not at all Feeling afraid as if something awful might happen: 0 = Not at all Total SEGUNDO-7 score (0-4 normal; 5-9 mild; 10-14 moderate; 15-21 severe): 0 Source: Developed by Drs. Van Lieberman, Maria Antonia Wagner, Byr Patel and colleagues, with an educational kane from [employer]. SEGUNDO-7 Assessment Billing SEGUNDO-7 Assessment Tool: SEGUNDO-7 Assessment 43344 Physical exam (Primary Care) Vital Signs: Last Vital Signs Pulse 86 11/22/24 14:00 BP 110/82 11/22/24 14:00 Pulse Ox 99 11/22/24 14:00 Oxygen Delivery Method Room Air 11/22/24 14:00 BMI result Body Mass Index 32.4 Tobacco/Smoking Status: Tobacco use Status Tobacco use date assessed 11/22/24 11/22/24 14:01 Patient Tobacco Use Status Never used Tobacco 11/22/24 14:01 e-Cigarette/Vaping Use Never Used 11/22/24 14:01 Thrive Assessment: Date of Thrive Assessment Date Thrive assessed 11/22/24 11/22/24 14:01 Currently or been in a relationship where the following occur: No concerns reported Coding Level of Care Code Est Pt Level 5 (87760) Diagnoses Disorder of left rotator cuff M67.912 Laterality: left Chronic bronchitis with productive mucopurulent cough J41.1 Hospital discharge follow-up Z09 Exposure to environmental hazard Z77.128 Additional Codes SEGUNDO-7 Assessment Billing - SEGUNDO-7 Assessment Tool: SEGUNDO-7 Assessment 09750 ([id number]) Time Spent (min) 40 Comment Reviewing chart/hospital notes/qmxd-ap-xubp/coordination of care Assessment & Plan Assessment & Plan (1) Rotator cuff disorder: Code(s): M67.919 - Unspecified disorder of synovium and tendon, unspecified shoulder Category: Medical Qualifiers: Laterality: left Qualified Code(s): M67.912 - Unspecified disorder of synovium and tendon, left shoulder (2) Chronic bronchitis with productive mucopurulent cough: Code(s): J41.1 - Mucopurulent chronic bronchitis Category: Medical (3) Hospital discharge follow-up: Code(s): Z09 - Encounter for follow-up examination after completed treatment for conditions other than malignant neoplasm Category: Medical (4) Exposure to environmental hazard: Code(s): Z77.128 - Contact with and (suspected) exposure to other hazards in the physical environment Category: Social Hx Plan Follow-up from ER visit dated 11/18/2024 [facility] 54-year-old gentleman presented to emergency room with a complaint of left shoulder, left elbow and left back pain. Initial injury occurred about a month ago. 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 Patient has been treating himself at home with resting and stretching exercises and was able to use elliptical. While using elliptical his shoulder was fine but hurt more after the use. On the day of arrival to emergency room patient twisted his back awkwardly and started having more pain There was no numbness tingling or weakness in extremities He had imaging done X-ray of his left elbow and shoulder were within normal limit His exam was most consistent with possible rotator cuff injury. Patient seemed to have muscular strain to his lower back no tenderness to percussion It was thought that there is no need for imaging of his back at that time. Physical therapy referral was offered but patient declined He was accompanied by his who requested small amount of oxycodone for his pain [id number]-lhemwya meds were not helping patient was given 12 tablets of 5 mg oxycodone Continued to have left shoulder pain. - Orthopedic consultation desired over physical therapy to further investigate shoulder condition. 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 - Also reported is a chronic cough persisting for four years. 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 - Previously treated symptoms with allergy medication with varying effectiveness. - Denies tobacco use and presents no shortness of breath despite chronic cough presence. - Lymphadenopathy in the neck area observed, considered non-threatening and allergy-related. Problem List - Shoulder pain likely due to suspected rotator cuff pathology - Chronic cough possibly secondary to environmental exposure - Lymphadenopathy attributed to allergies or viral infection Patient Instructions - Arrange an appointment with an conservation specialist for further evaluation of the shoulder pain. - Consult a women specialist to assess chronic cough and potential environmental influence on respiratory health. - Continue using masks at work to minimize dust exposure. - Monitor lymph node size and report any increase or changes. Orders: Referrals Orthopedics Referral M67.919 - Unspecified disorder of synovium and tendon, unspecified shoulder Pulmonology Referral J41.1 - Mucopurulent chronic bronchitis
--- OUTSIDE RECORDS SUMMARY | 2024-11-22 16:13 | XMS_ITS | Continuity of Care Document ---
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 Date(s): 11/18/24 - 11/18/[address] [address]- Discharge Disposition: A-D/C Home Attending Physician: Wilner Fonseca MD Admitting Physician: Wilner Fonseca MD Referring Physician: Not on Staff, Referring MD Encounter Type: Disch ES Allergies, Adverse Reactions, Alerts No Known Allergies Immunizations Given and Recorded Vaccine Date Status Refusal Reason Hepatitis B Vaccine (old term) 1 12/27/06 Given Hepatitis B Vaccine (old term) 2 06/24/06 Given Hepatitis B Vaccine (old term) 05/31/06 Given Hepatitis A Vaccine (oldterm) 3 12/27/06 Given Hepatitis A Vaccine (oldterm) 05/31/06 Given Influenza Inactive (IM) (oldterm) 06/24/06 Given Typhoid Vaccine, Inactivated 05/31/06 Given 1Admin Note: HEP b#3 2Admin Note: hep B #2 3Admin Note: HEP a #2 Medications Motrin Tablet 600 mg, By Mouth, Every 24 hours, PRN, Refills 0, Maintenance, Pain , Mild, 12/26/21 6:35:00 AM EDT,Partial fill upon patient request if the prescription is for a schedule II opioid drug. Start Date: 12/26/21 Status: Ordered Repeat number: 1 oxyCODONE 5 mg oral tablet 5 mg, 1, tablet, By Mouth, Every 6 hours, PRN, for 3 days, # 12 tablet, Refills 0, Tot. Refills 0, Acute 11/21/24 4:55:00 PM EDT, as needed for pain, 11/18/24 4:55:00 PM EDT, Route to Pharmacy Electronically, [facility]/pharmacy #[id number], Partial fill upon patient request, 178, cm, 11/18/24 15:25:00 EDT, Height,108.8, kg, 11/18/24 15:25:00 EDT, Dry Weight Start Date: 11/18/24 Stop Date: 11/21/24 Status: Ordered Quantity: 12.0 Unit: tablet Repeat number: 1 oxyCODONE 5 mg oral tablet 5 mg, Tablet, By Mouth, Once, STAT, 11/18/24 4:57:00 PM EDT, Stop date 11/18/24 5:08:06 PM EDT Start Date: 11/18/24 Stop Date: 11/18/24 Status: Completed Repeat number: 1 Protonix 40 mg oral delayed release tablet 1 tablet = 40 mg, By Mouth, 2 times a day, # 60 tablet, 0 Refills, Maintenance, 12/26/21 3:58:00 PM EDT, CR Tablet, 178, cm, 12/26/21 11:05:00 EDT, Height, 100.9, kg, 12/26/21 6:10:00 EDT, Dry Weight Start Date: 12/26/21 Status: Ordered Quantity: 60.0 Unit: tablet Repeat number: 1 Problem List Condition Confirmation Course Effective Dates Status H ealt Status Informant Obese class I Confirmed Active Osteoarthritis of left hip Confirmed Active Results Radiology Reports * Exam Date Time Procedure Performing Provider Status 11/18/24 3:48 PM Elbow Min 3 Views Left Han Rosanaao T ; Auth (Verified) Notes: (Elbow Min 3 Views Left) Reason For Exam: Decreased ROM RESULT: Elbow Min 3 Views Left Elbow Min 3 Views Left, 3 views Hx of Present Illness: fell off of [employer] truck 1 month ago, contimues to have L shoulderand eblow pain, + low back pain, has not been seen for this issue before, denies incontinence; Reason: Decreased ROM; Clinical Question(s): Fracture COMPARISON: 03/17/2015 FINDINGS: No fracture or dislocation. Enthesophyte at the olecranon process. No arthritic changes. No joint effusion. IMPRESSION: No evidence of acute osseous abnormality. WSN: [id number] Ordering Physician: Van Mckeon Dictated By: Miki Conte MD Dictated Date/Time: 11/18/24 3:52 pm Reviewed By: Miki Conte MD Signed By: Miki Conte MD Signed Date/Time: 11/18/24 3:52 pm Transcribed By: MARY Transcribed Date/Time: 11/18/24 3:52 pm * Exam Date Time Procedure Performing Provider Status 11/18/24 3:49 PM Shoulder Min 2 Views Left Han , Thutha o T; Auth (Verified) Notes: (Shoulder Min 2 Views Left) Reason For Exam: Decreased ROM RESULT: Shoulder Min 2 Views Left Shoulder Min 2 Views Left, 3 views Hx of Present Illness: fell off of [employer] truck 1 month ago, contimues to have L shoulderand eblow pain, + low back pain, has not been seen for this issue before, denies incontinence; Reason: Decreased ROM; Clinical Question(s): Fracture COMPARISON: 03/17/2015 FINDINGS: No fracture or dislocation. No arthritic change of the glenohumeral joint. Normal AC joint and portions of the clavicle included on the exam. No calcification of the rotator cuff. IMPRESSION: No evidence of acute osseous abnormality. WSN: [id number] Ordering Physician: Van Mckeon Dictated By: Miki Conte MD Dictated Date/Time: 11/18/24 3:51 pm Reviewed By: Miki Conte MD Signed By: Miki Conte MD Signed Date/Time: 11/18/24 3:51 pm Transcribed By: MARY Transcribed Date/Time: 11/18/24 3:51 pm Vital Signs Most recent to oldest [Reference Range]: 1 2 Height 178 cm (11/18/24 3:25 PM) Weight 108.8 kg (11/18/24 3:25 PM) Oxygen Saturation [94-100 %] 99 % (11/18/24 3:25 PM) Pulse Rate [55-90 bpm] 67 bpm (11/18/24 3:25 PM) Blood Pressure [90-138/55-84 mm Hg] 122/ 70mm Hg (11/18/24 3:25 PM) Respiratory Rate [16-30 br/min] 18 br/mi n (11/18/24 5:07 PM) 20 br/min (11/18/24 3:25 PM) Temperature [96.8-100.4 DegF] 98.1 DegF (11/18/24 3:25 PM) Blood pressure sites Arm, right (11/18/24 3:25 PM) Temperature Route Temporal (11/18/24 3:25 PM) Dry Weight 108.8 kg (11/18/24 3:25 PM) Weight Obtained Via Patient/family state d (11/18/24 3:25 PM) Social History Social History Type Response Smoking Status Never (less than 100 in lifetime) entered on: 12/26/21 Sex Sex Representation Male (finding) Note * Mike Chen: PERFORM Event Display: Patient Education Leaflets Authored Date: [id number] Back Sprain or Strain ?? [id number] Back Sprain or Strain Injury to the muscles (strain) or ligaments (sprain) around the spine can??be troubling. Injury mayoccur after a sudden forceful twisting or bending, such as in a car accident, after a simple awkward movement, or after lifting something heavy with poor body positioning. In??any case, muscle spasm is often present and adds to the pain. Thankfully, most people feel better in 1 to 2 weeks. Most of the rest feel better in 1 to 2 months.Most people can stay active. Unless you had a forceful or traumatic physical injury, such as??a caraccident or fall, X-rays may not be done for the first assessment of a back sprain or strain. If pain continues and doesn't respond to medical treatment, your healthcare provider may then do X- rays and other tests. Home care These guidelines will help you care for your injury at home: ??? When in bed, try to find a comfortable position. A firm mattress is best. Try lying flat on your back with pillows under your knees. You can also try lying on your side with your knees bent up toward your chest and a pillow between your knees. ??? Don't sit for long periods. Try not to take long car rides or other trips that have you sitting for a long time. This puts more stress on the low back than standing or walking. ??? During the first 24 to 72 hours after an injury or flare-up, put an ice pack on the painful area for 20 minutes. Then remove it for 20 minutes. Do this for??60 to 90 minutes, or a few times a day. This will reduce swelling and pain. To make an ice pack, put ice cubes in a plastic bag that seals at the top. Always wrap the ice pack in a thin towel or cloth to protect your skin. ??? You can start with ice, then switch to??heat. Heat from a hot shower, hot bath, or heating pad reduces pain and works well for muscle spasms. Put heat on the painful area for 20 minutes, then remove for 20 minutes.??Do this for 60??to 90 minutes, or several times a day. Don't use a heating pad while sleeping. It can burn the skin. ??? You can alternate the??ice and heat. Talk with your healthcare provider to find out the best treatment or therapy for your back pain. ??? Therapeutic massage can help relax the back mus cles without stretching them. ??? Be aware of safe lifting methods. Don't lift anything over 15 pounds until all pain is gone. ?? Medicines Talk with your healthcare provider before using medicines, especially if you have other health problems or are taking other medicines. ??? You may use akgr-oxd-sbgqubm medicines, such as acetaminophen, ibuprofen, or naproxen, to control pain, unless another pain medicine was prescribed. Talk with your provider before taking any medicines if you have a chronic condition, such as diabetes, liver orkidney disease, stomach ulcers, or digestive bleeding, or are taking blood-thinner medicines. ??? Be careful if you are given prescription medicines, such as opioids, or medicine for muscle spasm. They can cause drowsiness, and affect your coordination, reflexes, and judgment. Don't drive or operate heavy machinery when taking these types of medicines. Only take pain medicine as prescribed by your provider. ?? Follow-up care Follow up with your healthcare provider as advised. You may need physical therapy or more tests??ifyour symptoms get worse. If you had X-rays, your provider may be checking for any broken bones, breaks, or fractures. Bruises and sprains can sometimes hurt as much as a fracture. These injuries can take time to heal fully. If your symptoms don???t get better or they get worse, talk with your provider. You may need a repeat X-ray or other tests. ?? Call 911 Call 911 if any of these occur: ??? Trouble breathing ??? Confused ??? Very drowsy or trouble waking up ??? Fainting or loss of consciousness ??? Rapid or very slow heart rate ??? Loss of bowel or bladder control ??? Weakness or numbness in 1 or both arms or legs ??? Numbness in the groin or genital area ?? When to get medical advice Call your healthcare provider right away if this occurs: ??? Pain gets worse or spreads to your arms or legs ?? Last Reviewed Date: 2022 00:00:00 ?? 5416-0960 [employer]. All rights reserved. This information is not intended as a substitute for professional medical care. Always follow your healthcare professional's instructions. ?? * Mike Chen: PERFORM Event Display: Patient Education Leaflets Authored Date: [id number] Shoulder Pain with Uncertain Cause ?? [id number] Shoulder Pain with Uncertain Cause Shoulder pain can have many causes. Pain often comes from the structures that surround the shoulderjoint. These are the joint capsule, ligaments, tendons, muscles, and bursa. Pain can also come fromcartilage in the joint. Cartilage can become worn out or injured. It???s important to know what???scausing your pain so the healthcare provider can use the correct treatment. But sometimes, it???s difficult to find the exact cause of shoulder pain. You may need to see a specialist (orthopedist). You may also need special tests such as a CT scan or MRI. The provider may need to use special tools to look inside the joint (arthroscopy). Shoulder pain can be treated with a sling or a device that keeps your shoulder from moving. You cantake an anti-inflammatory medicine such as ibuprofen to ease pain. You may need to do special shoulder exercises. Follow up with a specialist if the pain is severe or doesn???t go away after a few weeks. Home care Follow these tips when caring for yourself at home: ??? If a sling was given to you, leave it in place for the time advised by your healthcare provider. If you aren???t sure how long to wear it, ask for advice. If the sling becomes loose, adjust it so that your forearm is level with the ground. Your shoulder should feel well supported. ??? Put an ice pack on the injured area for 20 minutes every 1 to 2 hours the first day. You can make your own ice pack by putting ice cubes in a plastic bag. Wrap the bag in a thin towel. Continue with ice packs 3 to 4 times a day for the next 2 days. Then usethe pack as needed to ease pain and swelling. ??? You may use acetaminophen or ibuprofen to controlpain, unless another pain medicine was prescribed.??If you have chronic liver or kidney disease, talk with your healthcare provider before using these medicines. Also talk with your provider if you???ve ever had a stomach ulcer or digestive bleeding. ??? Shoulder pain may seem worse at night, when there is less to distract you from the pain. If you sleep on your side, try to keep weight off your painful shoulder. Propping pillows behind you may stop you from rolling over onto that shoulder during sleep.? Shoulder and elbow joints can become stiff if left in a sling for too long. You may be instructed to start range of motion exercises about 7 to 10 days after the injury. Talk with yourprovider to find out what type of exercises to do and how soon to start. ??? You can take the slingoff to shower or bathe. ?? Follow-up care Follow up with your healthcare provider if you don???t start to get better in the next 5 days. ?? When to seek medical advice Call your healthcare provider right away??if any of these occur: ??? Pain or swelling gets worse??or continues for more than a few days ??? Your hand or fingers become cold, blue, numb, or tingly ???Large amount of bruising on your shoulder or upper arm ??? Trouble moving your hand or fingers ??? Weakness in your hand or fingers ??? Your shoulder becomes stiff ??? It feels like your shoulder is popping out ??? You are less able to do your daily activities ?? Last Reviewed Date: 2022 00:00:00 ?? [employer]. All rights reserved. This information is not intended as a substitute for professional medical care. Always follow your healthcare professional's instructions. ?? Patient Care team information Care Team Personnel Name: Francisco SANDOVAL, Mariely Position: Reference Physician Member Role: PCP Address: [address] [place] [address] Telecom: Insurance Providers Guarantor name: [employer] Health Plan Information #: 1 Payer: [facility] Member Number: [id number] Policy Number: ERINN Group Number: [id number] Health Plan Information #: 2 Payer: [facility] Member Number: [id number] Policy Number: ERINN Group Number: [id number]
== END 2024-11-22 14:53 | disposition home or self-care (01) ==
PROVIDERS: PCP Internal Medicine; Visit Provider Internal Medicine
DX: M67.912 Unspecified disorder of synovium and tendon, left shoulder (principal); J41.1 Mucopurulent chronic bronchitis; Z09 Encounter for follow-up examination after completed treatment for conditions other than malignant neoplasm; Z77.128 Contact with and (suspected) exposure to other hazards in the physical environment

== ENCOUNTER → 2024-11-22 13:57 | Outpatient (BNVA) | payer OTHER, SELFPAY | PROVIDERS: PCP Internal Medicine; Visit Provider Internal Medicine | DX: M67.912 Unspecified disorder of synovium and tendon, left shoulder (principal); J41.1 Mucopurulent chronic bronchitis; Z77.128 Contact with and (suspected) exposure to other hazards in the physical environment | CPT/HCPCS: 96127 ==

== ENCOUNTER 2024-12-29 10:08 | Outpatient (AMB) | payer OTHER, SELFPAY ==
[2024-12-29 10:29] VITALS: BP 110/62; PULSE 80; O2SAT 96; BMI 32.4
--- NOTE | 2024-12-29 10:29 | MHC.OFFVIS ---
Vital Signs 12/29/24 10:29 Height 5 ft 10 in Weight 225 lb 8 oz BMI 32.4 BP 110/62 Blood Pressure Location Rt brachial Position Sitting Pulse 80 Pulse Source Pulse Oximeter Pulse Oximetry (%) 96 Oxygen Delivery Method Room Air Intake Visit Reasons: Chronic dry cough Allergies No Known Allergies Allergy (Verified 12/29/24 10:32) HPI HPI Chronic dry cough: Details: Francis is a pleasant 54-year-old male, never smoker, with underlying arthritis. He was referred by PCP for pulmonary evaluation for chronic cough. He reports cough has been present for the last 4 years, unchanged and productive with whitish yellow sputum. He denies wheezing, chest tightness or dyspnea. He is quite active and reports intermittent cough with activity otherwise denies respiratory symptoms associated with exertion. He denies any symptoms to suggest infectious process. He reports prior history of reflux however denies reflux symptoms at this time. He questions if cough is related to postnasal drip, unsure environmentall allergies. He reports asthma dx as a child however has not had notable symptoms as an adult. He endorses secondhand smoke exposure. He denies pertinent family history. 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 [facility]LY [facility] Medical History Arthritis Lipid disorder Surgical History History of colonoscopy Family History Brother No problems noted. Sister No problems noted. Sister No problems noted. Father HTN (hypertension) Diabetes mellitus Mother No problems noted. Daughter No problems noted. Daughter No problems noted. Son No problems noted. Son No problems noted. Son No problems noted. 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 Cognitive needs: No Hearing needs: No Vision needs: Yes Review of Systems Const Denies chills, Denies excessive sweating, Denies fever(s), Denies headache(s) and Denies night sweats Eyes Denies dry eyes, Denies irritation and Denies itchy eyes ENT Reports Normal hearing present, Denies headache(s), Denies nasal congestion, Denies nasal discharge and Denies sore throat Card Denies chest pain, Denies chest pain at rest, Denies chest pain with activity, Denies claudication, Denies leg edema, Denies dyspnea, Denies dyspnea on exertion, Denies orthopnea and Denies paroxysmal nocturnal dyspnea Resp Denies chest congestion, Denies excessive phlegm production, Denies pain on inspiration, Denies pain with cough, Denies dyspnea, Denies dyspnea on exertion, Denies stridor and Denies wheezing Musc Denies myalgias Neuro Reports Normal hearing present and Denies headache(s) Endo Denies excessive sweating Stephen/Lymph Denies lymphadenopathy Aller/Immun Denies itchy eyes, Denies seasonal rhinorrhea and Denies wheezing Physical Exam Vital Signs: Last Vital Signs Pulse 80 12/29/24 10:29 BP 110/62 12/29/24 10:29 Pulse Ox 96 12/29/24 10:29 Oxygen Delivery Method Room Air 12/29/24 10:29 BMI result Body Mass Index 32.4 Const General: cooperative, healthy appearing, comfortable, no acute distress, well developed and alert Orientation/consciousness: patient oriented x3 Limitations: no limitations HEENT Head: Yes normal to inspection, Yes normocephalic and Yes atraumatic Ears: hearing grossly normal bilaterally and external ears normal Eyes General: appearance normal, both eyes and all related structures Eyelids: Yes eyelids normal Sclerae: sclerae normal EOM: EOMs intact bilaterally Neck Neck: Yes normal visual inspection and Yes no lymphadenopathy Lymphatic: no lymphadenopathy noted Chest Chest palpation & inspection: normal inspection of the chest Resp Effort & Inspection: normal respiratory effort, able to speak in complete sentences, no audible wheezes, no cough, no stridor, not tachypneic, no tripod positioning and no use of accessory muscles Auscultation: clear to auscultation bilaterally Cardio Jugular venous distension: no JVD Rate: regular rate Rhythm: regular rhythm Skin Other: warm, dry General skin exam: no rashes or lesions noted Neuro General: patient oriented x3 Cranial nerves: Yes Normal hearing present Cognition (Neuro): normal cognition Gait exam (Neuro): Normal gait present Extrem General: Yes normal to inspection, Yes capillary refill normal, Yes no clubbing, cyanosis or edema and Yes no pedal edema Psych Appearance: grossly normal and well kempt Speech and movement: Normal speech and movement present and Clear speech present Affect: normal affect Attitude: cooperative Thought process: Normal thought process present Thought content: Normal thought content present Insight: Good insight present (Psych) Judgement: Good judgement present (Psych) Assessment & Plan Assessment & Plan (1) Chronic cough: Code(s): R05.3 - Chronic cough Category: Medical (2) Environmental allergies: Code(s): Z91.09 - Other allergy status, other than to drugs and biological substances Category: Medical Plan Francis presents for pulmonary evaluation for ongoing chronic cough, with prior history of asthma as a child. Will send for PFT to assess for an obstructive defect as well as chest x-ray to assess for any underlying parenchymal condition contributing to cough. Patient endorses postnasal drip which may be contributing to cough, will empirically try ipratropium nasal spray as well send for allergy testing. All questions were answered and patient is in agreement with plan. Will follow-up to review results or sooner if needed. Orders: Orders XR chest 2V Today R05.3 - Chronic cough PFT pulmonary function test Today R05.3 - Chronic cough Complete Blood Count Auto Diff Today Z91.09 - Other allergy status, other than to drugs and biological substances Resp Allergy Profile Region I Today Z91.09 - Other allergy status, other than to drugs and biological substances Immunoglobulin E Today Z91.09 - Other allergy status, other than to drugs and biological substances Medications: New ipratropium bromide administer into each nostril 2 sprays intranasal BID 30 mL 0RF Coding Level of Care Code New Pt Level 4 (25024) Diagnoses Chronic cough R05.3 Environmental allergies Z91.09
== END 2024-12-29 10:55 | disposition home or self-care (01) ==
LOC: HO.HPSW 10:09
PROVIDERS: PCP Internal Medicine; Visit Provider Nurse Practitioner Family
DX: R05.3 Chronic cough (principal); Z91.09 Other allergy status, other than to drugs and biological substances
CPT/HCPCS: 99204

== ENCOUNTER → 2024-12-29 10:08 | Outpatient (BNVA) | payer OTHER, SELFPAY | PROVIDERS: PCP Internal Medicine; Visit Provider Nurse Practitioner Family ==

== ENCOUNTER 2024-12-29 11:00 | Outpatient (REF) | payer OTHER, SELFPAY ==
[2024-12-29 14:21] LABS: MANUAL DIFF FLAG NO
[2024-12-29 14:38] LABS: Basophils Percent Auto 0.9 % (0-2); Eosinophils Absolute Auto 0.2 X10*3/uL (0.0-0.4); Hematocrit 45.3 % (42.0-52.0); Hemoglobin 15.5 g/dl (14.0-18.0); Imm Gran Abs Auto 0.01 X10*3/uL (0.00-0.03); Imm Gran Pct Auto 0.2 % (0.0-0.4); Lymphocytes Percent Auto 42.4 % (20-40); Mean Corpuscular HGB Conc 34.2 g/dl (31.0-36.0); Mean Corpuscular Hemoglobin 27.8 pg (27.0-33.0); Mean Corpuscular Volume 81.2 fL (80.0-98.0); Mean Platelet Volume 11.6 fL (9.4-12.4); Monocytes Absolute Auto 0.5 X10*3/uL (0.1-1.2); Monocytes Percent Auto 10.7 % (2-11); Neutrophils Absolute Auto 1.9 x10*3/uL (2.0-8.3); Neutrophils Percent Auto 40.8 % (45-73); Platelet Count 236 X10*3/uL (160-400); Red Blood Count 5.58 X10*6/uL (4.60-5.80); Red Cell Distribution Width 13.5 % (11.0-16.0); White Blood Count 4.6 X10*3/uL (4.8-10.8)
[2024-12-30 06:33] LABS: Immunoglobulin E 69 kU/L (<OR=114)
[2025-01-01 23:44] LABS: Class Alternaria alternata 0; Class Aspergillus fumigatus 0; Class Bermuda Grass 0; Class Birch 0; Class Cat Dander 0; Class Cladosporium herbarum 0; Class Cockroach 0; Class Common Ragweed 0; Class Cottonwood 0; Class Derm. pterony 0; Class Dermatophagoides farinae 0; Class Dog Dander 0; Class Elm 0; Class Maple Box Elder 0; Class Mountain Cedar 0; Class Mouse Urine Protein 0; Class Mugwort 0; Class Oak 0; Class Penicillium crysogenum 0; Class Rough Pigweed 0; Class Sheep Sorrel 0; Class Sycamore 0; Class Timothy Grass 0; Class Walnut Tree 0; Class White Ash 0; Class White Mulberry 0; D001 IgE D pteronyssinus <0.10 kU/L; D002 - IgE D farinae <0.10 kU/L; E001 - IgE Cat Dander <0.10 kU/L; E005 - IgE Dog Dander <0.10 kU/L; E072-IgE Mouse Urine <0.10 kU/L; G002 IgE Bermuda Grass <0.10 kU/L; G006 - IgE Timothy Grass <0.10 kU/L; I006-IgE Cockroach, German <0.10 kU/L; Immunoglobulin E 66 kU/L (<OR=114); M001 IgE Penicillium chrysogen <0.10 kU/L; M002 - IgE Cladosporium herbar <0.10 kU/L; M003 - IgE Aspergillus fumigat <0.10 kU/L; M006 - IgE Alternaria alternat <0.10 kU/L; T001 IgE Maple/Box Elder <0.10 kU/L; T003 IgE Common Silver Birch <0.10 kU/L; T006 - IgE Cedar, Mountain <0.10 kU/L; T007 - IgE Oak, White <0.10 kU/L; T008 IgE Elm, American <0.10 kU/L; T010 - IgE Walnut <0.10 kU/L; T011 - IgE Maple Leaf Sycamore <0.10 kU/L; T014 - IgE Cottonwood <0.10 kU/L; T015 - IgE Ash, White <0.10 kU/L; T070 - IgE White Mulberry <0.10 kU/L; W001 - IgE Ragweed, Short <0.10 kU/L; W006 - IgE Mugwort <0.10 kU/L; W014 IgE Pigweed, Common <0.10 kU/L; W018 IgE Sheep Sorrel <0.10 kU/L
== END 2024-12-29 11:01 | disposition home or self-care (01) ==
LOC: HO.WFDLDS 11:00
PROVIDERS: Visit Provider Nurse Practitioner Family
DX: Z91.09 Other allergy status, other than to drugs and biological substances (principal)
CPT/HCPCS: 36415; 82785; 85025; 86003

== ENCOUNTER 2025-03-23 15:51 | Outpatient (REF) | payer OTHER, SELFPAY ==
--- NOTE | 2025-03-23 15:55 | PFT_ITS ---
Flows: FEV1: 124 % of predicted at 3.93 L FVC: 124 % of predicted at 4.96 L FEV1/FVC: 81 % Bronchodilator response: Present in small to medium airways only Volumes: Total lung capacity: 100 % of predicted at 7.18 L Residual volume: 105 % of predicted at 2.22 L Slow vital capacity: 96 % of predicted at 4.96 L Expiratory reserve volume: 77 % of predicted at 1.06 L Diffusion capacity: Normal Impression: No obstructive or restrictive ventilatory defect. Bronchodilator response is present in small to medium airways only. MTDD
[2025-03-23 16:42] VITALS: PULSE 95; O2SAT 98
== END 2025-03-23 15:52 | disposition home or self-care (01) ==
LOC: HO.RESP 15:51
PROVIDERS: PCP Internal Medicine; Visit Provider Nurse Practitioner Family
DX: R05.3 Chronic cough (principal)
CPT/HCPCS: 94010; 94640; 94727; 94729

== ENCOUNTER → 2025-03-23 15:55 | Outpatient (BNV) | payer OTHER, SELFPAY | PROVIDERS: PCP Internal Medicine; Visit Provider Internal Medicine Pulmonary Disease | DX: R05.9 Cough, unspecified (principal) | CPT/HCPCS: 94060; 94727; 94729 ==